=== PATIENT | female | born 1975 | race American Indian/Alaskan Native ===

== ENCOUNTER 2016-11-19 18:54 | Emergency (ER) | payer OTHER ==
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
--- NOTE | 2016-11-19 22:47 | XRay Report ---
FINAL REPORT EXAM: XR WRIST 3+V RT HISTORY: RIGHT WRIST pain COMPARISONS: None. FINDINGS: Three views right wrist Irregularity involving the scaphoid waist. Ofphty-[id number] alignment is intact on lateral view. Amorphous 5 millimeter calcification is present adjacent to the ulnar styloid may be sequela of prior injury or represent an os styloidium. Mild 1st carpometacarpal and triscaphe osteoarthrosis. IMPRESSION: Possible minimally displaced scaphoid waist fracture. Consider follow-up radiographs and/or MRI.
--- NOTE | 2016-11-19 22:49 | XRay Report ---
FINAL REPORT EXAM: XR SPINE CERVICAL 2-3V HISTORY: NECK pain COMPARISONS: None FINDINGS: Four views of the cervical spine Cervical lordosis is within normal limits. Vertebral body heights and intervertebral disc spaces are preserved. No fractures. Prevertebral soft tissues are within normal limits. Incomplete evaluation of the lung apices is unremarkable. IMPRESSION: Unremarkable cervical spine radiographs. Consider additional imaging for worsening/persistent symptoms.
[2016-11-20 00:16] VITALS: BP 136/93
== END 2016-11-20 00:18 | disposition home or self-care (01) ==
LOC: ED 18:54
DX: S62.001A Unspecified fracture of navicular [scaphoid] bone of right wrist, initial encounter for closed fracture (principal); F17.200 Nicotine dependence, unspecified, uncomplicated; Z88.1 Allergy status to other antibiotic agents; V49.49XA Driver injured in collision with other motor vehicles in traffic accident, initial encounter; W22.11XA Striking against or struck by driver side automobile airbag, initial encounter; Y93.89 Activity, other specified; Y99.9 Unspecified external cause status; Y92.410 Unspecified street and highway as the place of occurrence of the external cause
CPT/HCPCS: 72040; 81025